=== PATIENT | male | born 1980 | race Caucasian/White ===

== ENCOUNTER 2019-07-16 14:43 | Day surgery (SDC) | payer BC ==
[~2019-07-16 14:43] MED LIST: Buffered Lidocaine 1% SYRIN* 1 ML/SYRINGE INTRADERM ONE; Lactated Ringers 1000 ML Bag* 1,000 ML IV SCH
[2019-07-16] MEDS ORDERED: ceFAZolin 2 GM PREMIX in ORs 2 GM/50 ML BAG ONE (15:07)
[2019-07-16] MEDS ORDERED: Midazolam* 1 MG/ML 2 ML VIAL (2 MG) ONE (15:26)
[2019-07-16] MEDS ORDERED: Lidocaine 2% PF * 5 ML VIAL ONE (15:26)
[2019-07-16] MEDS ORDERED: Propofol* 10 MG/ML 20 ML BTL ONE (15:26)
[2019-07-16] MEDS ORDERED: Bupivacaine 0.5% W/EPI SDV* 10 ML VIAL INJ ONE (15:59)
[2019-07-16] MEDS ORDERED: EPINEPHRINE 1 MG/ML 1 ML VIAL ONE (15:59)
[2019-07-16] MEDS ORDERED: fentaNYL* 50 MCG/ML 2 ML VIAL (100 MCG VIAL) ONE ×2 (16:44→17:23)
[2019-07-16] MEDS ORDERED: Dexamethasone IV* 4 MG/ML 1 ML (4 MG) ONE (16:48)
[2019-07-16] MEDS ORDERED: Metoclopramide IV* 5 MG/ML 2 ML VIAL ONE (16:48)
[2019-07-16] MEDS ORDERED: Ketorolac INJ* 30 MG/ML 1 ML VIAL ONE (16:48)
[2019-07-16] MEDS ORDERED: Ondansetron INJ* 2 MG/ML VIAL ONE (16:48)
[2019-07-16] MEDS ORDERED: fentaNYL* 50 MCG/ML 2 ML VIAL (100 MCG VIAL) IV PRN (17:03)
[2019-07-16] MEDS ORDERED: oxyCODONE TAB* 5 MG TAB PO PRN (17:03)
[2019-07-16] MEDS ORDERED: DiMENhydriNATE IV* 50 MG/ML VIAL IV PUSH PRN (17:03)
[2019-07-16] MEDS ORDERED: Naloxone* 0.4 MG/ML 1 ML VIAL IV PRN (17:03)
[2019-07-16] MEDS ORDERED: Acetaminophen TAB* 325 MG PO PRN (17:03)
[2019-07-16 18:35] VITALS: BP 141/82
--- NOTE | 2019-07-17 02:56 | OP ---
DATE OF OPERATION: 07/16/19 - [facility] DATE OF : 82 SURGEON: Jose Deleon MD [employer] AND [employer]ER GOLD WHEEL: NATI Telles. A physician legal support assistant was required for the length of the procedure for assistance with patient positioning, retraction, instrumentation, and closure. ANESTHESIOLOGIST: Dr. Kayleen Mejia. ANESTHESIA: General anesthesia, local anesthesia consisting of Marcaine 0.25% with epinephrine, 30 cc. PRE-OP DIAGNOSIS: Right knee medial meniscus tear. POST-OP DIAGNOSIS: Right knee medial meniscus tear. OPERATIVE PROCEDURE: 1. Right knee arthroscopic partial medial meniscectomy. 2. Right knee arthroscopic evaluation of posterior cruciate ligament. ANTIBIOTICS: Ancef 2 g IV. IV FLUIDS: See anesthesia note. [id number]-PK-[id number] TIME: 20 minutes. TOURNIQUET TIME: 27 minutes at 300 mmHg, right thigh. SPECIMEN: None. IMPLANTS: None. ESTIMATED BLOOD LOSS: Minimal. COMPLICATIONS: None. INDICATIONS FOR PROCEDURE: The patient is a 38-year-old man who has been in right knee pain for 5 months since February 2019. At about that time, there was no discrete antecedent trauma, but the patient was doing much biking and soccer playing. His history and physical exam were consistent with medial meniscus tear. MRI demonstrated such, medial meniscus tear. The patient's exam was also consistent with a PCL injury. 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 The patient failed to respond sufficiently to nonoperative management and opted for surgery. Discussed risks and potential complications of surgery. Discussed heterogenous nature of meniscal tears and different outcomes depending on a variety of factors. Discussed meniscus repair and partial meniscectomy with the patient at length including postoperative recovery and long-term implications. DESCRIPTION OF PROCEDURE: In the preoperative holding, the patient signed a written consent. Operative extremity was marked in preoperative holding. The patient was taken back to the operating room, placed supine on the operating room table. Sedated and intubated. [place] bump was placed under the right hemipelvis. Right proximal thigh was surrounded by a tourniquet. Right distal thigh was placed in the circumferential thigh campbell. Right lower extremity was prepped and draped. Surgical time-out performed. Esmarch was applied and the tourniquet was elevated to 300 mmHg. I made an anterolateral knee arthroscopy portal using standard technique. Commenced diagnostic arthroscopy. No patellofemoral compartment articular cartilage injury. The patient did have some bursal tissue or synovium prolapsing into the patellofemoral compartment. I moved down to the medial compartment. Immediately clear was a partial thickness radial shape tear at the junction in the posterior horn and the posterior body. I established an anteromedial portal under direct visualization. I next debrided the ligamentum mucosum and some anterior synovitic tissue. I next addressed the medial meniscus tear. I found that there was a very discrete partial thickness tear, that was only the inner 20% to 40% of the meniscus width. Clearly a nonhealing white-white zone and may be early white- red zone tear. I debrided that back to a stable rim using arthroscopic julio c and meniscal biters. There was also some minimal undersurface tearing to the posterior horn that was smoothed out using arthroscopic shaver and meniscal biter. The patient still had plenty of meniscus rim present. Meniscus was stable. No more tearing present. I should state that there was no significant articular cartilage damage in that medial compartment. I next moved to the lateral compartment. No articular cartilage damage nor any lateral meniscal tear. I moved to the intercondylar notch. ACL was intact to probing and visualization. More difficult to assess the PCL given its location but certainly proximally it appeared fully intact. I probed it with the arthroscopic probe. I then stuck the arthroscope in the posteromedial portal to view more distal fibers. That was little bit limited in my ability to view here distally but at least some of them were intact. I next moved to the patellofemoral compartment and just debrided little bit more anterior synovitic tissue with an arthroscopic shaver. Exited knee. Removed fluid and instruments. Closed skin incisions with figure- of- eight 12 stitches using nylon 3-0 suture. Local anesthetic was injected. Xeroform, 4 x 4s, ABD, sterile Webril, Obed bandage from foot to proximal groin. Cooling unit applied. The patient awakened, extubated, and transferred to the PACU. DISPOSITION: Wound care instructions provided. Weightbearing as tolerated with crutches. Physical therapy to start immediately. Aspirin for DVT prophylaxis and Percocet as needed for pain control. The patient will follow up with me in clinic in 10 to 14 days. [id number]/[facility] #: [id number] [facility]
== END 2019-07-16 19:33 | disposition home or self-care (01) ==
LOC: OR 14:43
PROVIDERS: ATTEND Orthopaedic Surgery
DX: S83.241A Other tear of medial meniscus, current injury, right knee, initial encounter (principal); X50.3XXA Overexertion from repetitive movements, initial encounter; Y93.79 Activity, other specified sports and athletics; Y92.9 Unspecified place or not applicable
CPT/HCPCS: J0690; J1100; J1885; J2250; J2405; J2704; J2765; J3010